=== PATIENT | male | born 1950 | race Caucasian/White ===

== ENCOUNTER 2022-06-27 08:02 | Day surgery (SDC) | payer MEDICARE ==
[~2022-06-27] VITALS: Ht 175.3 cm; Wt 77.2 kg
[~2022-06-27 08:02] MED LIST: ADULT LOW DOSE81 MG PO; CENTRUM SILVER1 EAC6 PO; COLOSTRUM500 MG PO; EPIDIOLEX100 MG/1 M PO; MILK THISTLE140 M1 PO
--- NOTE | 2022-06-27 09:38 | NUR ---
PT BACK TO [facility] FROM SURGERY, HE HAD NO SEDATION PROCEDURE WAS DONE WITH LOCAL ANESTHETICS ONLY. PT AWAKE AND ALERT DENIES PAIN OR NAUSEA, HE IS TAKING SIPS OF WATER TOLERATES WELL. HIS GIRLFRIEND IS AT BEDSIDE. WARM BLANKETS GIVEN CALL LIGHT IS WITHIN REACH.
--- NOTE | 2022-06-27 10:06 | NUR ---
0980 PT DISCHARGED FROM DS. DISCHARGE INSTRUCTIONS GIVEN TO PT BY DR VALDEZ PT VOICED UNDERSTANDING. PT WHEELED OUT TO CAR BY RN.
--- NOTE | 2022-07-03 16:21 | PATH ---
[facility] [address] [place], [place] [address] Signed SPECIMEN(S): A LEFT NASAL LESION SPECIMEN SOURCE: A. LEFT NASAL LESION CLINICAL HISTORY: Excision of left nasal lesion (stitch marquis superior margin). FINAL PATHOLOGIC DIAGNOSIS: Nasal lesion, left: - Basal cell carcinoma, nodular type, ulcerated. - This carcinoma extends to the 6, 8, 12, 1, and 2 o'clock peripheral margins. - Deep margin is free of this carcinoma. TWK:emh:C1NR MICROSCOPIC EXAMINATION: Histologic sections of all submitted blocks are examined by light microscopy. These findings, together with the gross examination, support the pathologic diagnosis. GROSS DESCRIPTION: The specimen, labeled "Jesús Koch," and designated on the requisition "left nasal lesion," is received in formalin and consists of a 1.5 x 0.9 x 0.7 cm oriented skin ellipse. A suture is present along one aspect identifying the superior margin and is redesignated 12 o'clock. The skin surface is pale pink and smooth with a red, granular lesion that is 0.8 x 0.6 cm. The specimen is inked as follows: 9-12-3 o'clock - black and 3-6-9 o'clock -blue. The specimen is serially sectioned from 9-3 o'clock and entirely submitted in two cassettes. Cassette Summary: (A1) 9 o'clock half (A2) 3 o'clock half FB (under the direct supervision of a pathologist) The Gross Description was prepared using a voice recognition system. The report was reviewed for accuracy; however, sound-alike word errors, addition and/or deletions may occur. If there is any question about this report, please contact Client Services. PERFORMING LABORATORY: The technical component was performed by [facility], [address] [place] [id number] (CLIA# [id number]). The professional interpretation was PATIENT NAME: JESÚS KOCH PATHOLOGY DATE OF : 54 REPORT #: [id number] PHYSICIAN: ISSA GUAJARDO PCP: SILVIA GARZA REPORT IS CONFIDENTIAL AND NOT TO BE RELEASED WITHOUT AUTHORIZATION [address] [address] Signed [facility], [facility], [address] [place] [address], [place] [address] (CLIA#: [id number]). Diagnostician: Mitch Mccullough MD Pathologist Electronically Signed 07/03/2022 Copies: ~ PATIENT NAME: JESÚS KOCH PATHOLOGY DATE OF : 54 REPORT #: [id number] PHYSICIAN: ISSA GUAJARDO PCP: GARZA,SILVIA [employer] REPORT IS CONFIDENTIAL AND NOT TO BE RELEASED WITHOUT AUTHORIZATION
--- NOTE | 2022-07-04 12:09 | OR ---
[facility] [address] [place], [place] [address] Signed DATE OF OPERATION: 06/27/2022 SURGEON: Juan Real MD PREOPERATIVE DIAGNOSIS: Left nasal skin lesion. POSTOPERATIVE DIAGNOSIS: Left nasal skin lesion. PROCEDURE: Wide local excision of nasal skin lesion with complex closure. ANESTHESIA: Local standby. PREOPERATIVE HISTORY: Jesús is a 72-year-old man with an ulcerated, crusted lesion on the left nasal skin. This is just above the ala, very suspicious for neoplasia and he is taken to the operating room for the excision. PROCEDURE AND FINDINGS: After informed consent, the patient was taken to the operating room, placed in the sitting position. Monitoring was performed. The patient and procedure were verified. The left nasal skin lesion was identified with an ulcerated crusted lesion just above the ala, measured about 15 mm in greatest dimension. Sterile prep and drape, 1% lidocaine with epi was injected in a field type block. The lesion was then excised with a 2-3 mm margins. Total length of excision was approximately 2.5 cm. The excision was down through skin and subcutaneous tissue down to the level of the alar cartilage, but not through the mucosa. The lesion was removed completely, suture placed in the superior margin and the specimens were sent in formalin to Pathology for permanent sections. Hemostasis was obtained with needle point cautery. The wound edges were elevated for several millimeters superiorly and inferiorly to allow for tension-free closure. The closure was then performed with 5-0 interrupted Vicryl subcu and 5-0 running nylon on the skin. Excellent cosmetic closure was obtained. Hemostasis verified. The skin was cleansed. Neosporin was applied. The patient was then transported back to same day in good condition. No complications. BLOOD LOSS: Minimal. Electronically Signed By: JUAN REAL MD 07/04/22 1209 PATIENT NAME: JESÚS SANDERS OPERATIVE REPORT DATE OF : 54 REPORT #: [id number] PHYSICIAN: JUAN REAL MD PCP: SILVIA GARZA REPORT IS CONFIDENTIAL AND NOT TO BE RELEASED WITHOUT AUTHORIZATION [facility] [address] [place], [place] [address], [place] [address] Signed SPECIMEN: To Pathology. DRAINS: No drains. Juan Real MD GC/MODL /[id number] Copies: ~ Electronically Signed By: JUAN REAL MD 07/04/22 1209 PATIENT NAME: JESÚS SANDERS OPERATIVE REPORT DATE OF : 54 REPORT #: [id number] PHYSICIAN: JUAN REAL MD PCP: SILVIA GARZA REPORT IS CONFIDENTIAL AND NOT TO BE RELEASED WITHOUT AUTHORIZATION
== END 2022-06-27 09:45 | disposition home or self-care (01) ==
LOC: OPS 08:02 → DS 08:02 → OPS 09:00
PROVIDERS: ATTEND Otolaryngology
PROC: 0HB1XZZ Excision of Face Skin, External Approach (ICD-10-PCS; principal; 2022-06-27 09:00)
DX: C44.311 Basal cell carcinoma of skin of nose (principal); R04.0 Epistaxis
CPT/HCPCS: 88305